=== PATIENT | female | born 1955 | race Caucasian/White ===

== ENCOUNTER 2017-04-06 09:18 | Emergency (ER) | payer OTHER ==
--- NOTE | ~2017-04-06 | CR72 ---
[facility]. [facility] A Service of [facility] & [facility] RADIOLOGY TEXT RESULTS PATIENT: ZAINAB MATHIS LOCATION: SED : 53 UNIT #: [id number] AGE: [address]: Mira Ybarra MD SEX: F ORDER DR: [id number] [address] [address] [id number] E MR#: [id number] Acc #: [id number] NAME: ZAINAB MATHIS. : 1955 SEX: F STUDY DATE/TIME: 04/06/2017 9:50 UNIT: SED ROOM: STUDY DESCRIPTION: CR Chest Single View Portable Attending Physician: Mira Ybarra M.D. Ordering Physician: Mira Ybarra M.D. Primary Care Physician: Anurag Matos Aprn MEDICAL IMAGING REPORT This report is preliminary unless electronic signature is present. EXAM Portable chest HISTORY Cough for the past 3 weeks with congestion. TECHNIQUE Single AP view chest was obtained. FINDINGS A single AP portable view of the chest shows both lungs to be clear. The heart is normal in size. The mediastinal contour is normal. No significant bone abnormalities are seen. IMPRESSION Normal portable chest. Dictated by... Alek Munoz M.D. THIS IS AN ELECTRONICALLY VERIFIED REPORT Alek Munoz M.D. at 04/08/2017 4:55 PM RLF/glenna TD: 04/07/2017 08:12 JOB #: [id number] MEDICAL IMAGING REPORT Page 1 of 1
[2017-04-06] MEDS ORDERED: NO MEDICATIONS (09:26)
== END 2017-04-06 10:43 | disposition home or self-care (01) ==
LOC: SED 09:18
DX: J18.9 Pneumonia, unspecified organism (principal); J20.9 Acute bronchitis, unspecified; Z87.891 Personal history of nicotine dependence
CPT/HCPCS: 71010; 99283